=== PATIENT | female | born 1930 | race Caucasian/White ===

== ENCOUNTER 2017-01-26 07:25 | Day surgery (SDC) | payer OTHER, BC ==
[~2017-01-26] VITALS: Ht 165.1 cm; Wt 89.8 kg
--- NOTE | ~2017-01-26 | O ---
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 POSTOPERATIVE DIAGNOSES: Left upper lid mechanical entropion with left upper lid retraction. PROCEDURES: 1. Left upper lid entropion repair by myocutaneous advancement flap. 2. Left upper lid retraction repair. SURGEON: Aureliano Crowder MD TOBACCO STRIPPER HAND: None. ANESTHESIA: MAC. COMPLICATIONS: None. 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 She presents now with a mechanical left upper lid entropion, thought to be secondary to a prior , which has been repositioned in addition to the left upper lid retraction with chronic ocular irritation. She presents today for a left upper lid entropion repair by myocutaneous advancement flap in addition to a left upper lid retraction repair. Informed consent was obtained to include, but not limited to the potential risk for loss of vision, bleeding, infection, failure to improve the problem, the potential need for further surgery or treatment. DESCRIPTION OF PROCEDURE: The patient was taken to the operating room where 2% Xylocaine with epinephrine mixed with equal parts of 0.75% Marcaine with Wydase was administered to the left upper lid. The patient was subsequently prepped and draped in the usual sterile fashion. A fine tip skin marking pen was then utilized to outline a left upper lid crease incision that extended into the infratemporal fossa. A small amount of redundant upper lid tissue was then outlined. The incisions were then made with a Amy scissor and a skin muscle flap removed with high temp cautery. The dissection was then carried down into the tissue plane through the orbital septum. The upper lid retractors were then relaxed and allowed the lid to drop into a lower position, thus improving the [facility] [address] [place] [address] OPERATIVE REPORT Name: ROSE ALCANTAR Room #: 150-10 [facility].#: [id number] Admission: 01/26/17 Attend Phys: Aureliano Crowder MD Discharge: Date of : 32 Report #: [id number] lid retraction. Attention was then turned to repair of the mechanical entropion. A transconjunctival incision was thought to be best avoided. A transcutaneous incision was then made through the pretarsal orbicularis muscle and drawn down on to the tarsal plate. The soft tissue then was elevated and advanced superiorly everting the lid margin across the lid. The myocutaneous flap was secured with interrupted 6-0 chromic sutures. The upper lid crease was then reformed with interrupted 6-0 chromic sutures. The skin was then closed with a 6-0 plain gut suture. The wounds were then cleaned and dressed with erythromycin ophthalmic ointment. The patient subsequently transported to the recovery area having tolerated the procedures well with no anesthetic or operative complications being noted. By: [id number] [id number] Aureliano Crowder MD /nt
[~2017-01-26 07:25] MED LIST: ALENDRONATE SOD70 MG PO; AMOXIL 875 MG875 M1 PO; CENTRUM SILVER1 EAC4 PO; COZAAR 25 MG TA25 M1 PO; HYDROCHLOROTHIA25 M2 PO; IBUPROFEN 800800 M1 PO; LOPRESSOR50 PO; METFORMIN HCL500 MG PO; METHOTREXATE 22.5 M1 PO; NAPROSYN500 MG PO; NORVASC5 MG PO; REFRESH LIQUIGE15 ML OPHTHALMIC
[2017-01-26 12:45] VITALS: BP 182/93
== END 2017-01-26 14:25 | disposition home or self-care (01) ==
LOC: OR 07:25 → TBA 07:25 → OR 12:26
DX: H02.004 Unspecified entropion of left upper eyelid (principal); H02.89 Other specified disorders of eyelid; Z87.891 Personal history of nicotine dependence; I10 Essential (primary) hypertension; Z90.710 Acquired absence of both cervix and uterus; M19.90 Unspecified osteoarthritis, unspecified site; M81.0 Age-related osteoporosis without current pathological fracture; E11.9 Type 2 diabetes mellitus without complications
CPT/HCPCS: 50010; 50101; 50386; 50398; 51636; 56531; 62110; 62850; 70005